=== PATIENT | female | born 1955 | race Caucasian/White ===

== ENCOUNTER → 2016-11-04 | Outpatient (CLI) | payer OTHER | LOC: FIMAGING 14:01 | PROVIDERS: ATTEND Internal Medicine | DX: Z12.31 Encounter for screening mammogram for malignant neoplasm of breast (principal) | CPT/HCPCS: G0202 ==

== ENCOUNTER → 2018-01-12 | Outpatient (CLI) | payer OTHER | LOC: FIMAGING 14:20 | PROVIDERS: ATTEND Internal Medicine | DX: Z12.31 Encounter for screening mammogram for malignant neoplasm of breast (principal) ==